=== PATIENT | female | born 1980 | race African-American/Black ===

== ENCOUNTER 2016-12-28 09:17 | Day surgery (SDC) | payer OTHER ==
[2016-12-28 09:42] LABS: BASOPHIL 0.7 % (0-2.0); EOSINOPHIL 1.9 % (0-4.5); MCH 24.8 pg (25.7-33.7); MCHC 31.3 g/dl (32.0-36.0); MEAN CELL VOLUME 79.3 fl (80-96); MEAN PLT VOLUME 9.3 fl (7.5-11.1); NEUTROPHILS 63.6 % (42.8-82.8); PLATELET COUNT 208 K/MM3 (134-434); RDW 17.8 % (11.6-15.6); WHITE BLOOD COUNT 7.7 K/mm3 (4.0-10.0)
[2016-12-28] MEDS ORDERED: diphenhydrAMINE HCL 25 MG CAPSULE (FP) PO ONE (10:00)
[2016-12-28] MEDS ORDERED: ACETAMINOPHEN 325 MG TABLET (FP) PO ONE (10:00)
[2016-12-28] MEDS ORDERED: SODIUM CHLORIDE 250 ML IV ONE (10:00)
[2016-12-28 10:11] LABS: ANION GAP 6 (8-16); CALCIUM 8.9 mg/dL (8.5-10.1); CO2 28 mmol/L (21-32); COCKROFT - GAULT 0; CREATININE 0.8 mg/dL (0.55-1.02); GLUCOSE,RANDOM 111 mg/dL (74-106)
[2016-12-28] MEDS ORDERED: ACETAMINOPHEN 325 MG TABLET (FP) ONE ×2 (10:11→10:13)
[2016-12-28 10:24] LABS: C-REACTIVE PROTEIN < 0.3 MG/DL (0.00-0.3)
[2016-12-28] MEDS ORDERED: SODIUM CHLORIDE IVPB ONE (10:30)
[2016-12-28] MEDS ORDERED: INFLIXIMAB IVPB ONE (10:30)
[2016-12-28 12:21] VITALS: PULSE 74
[2016-12-28 12:29] VITALS: TEMP 98.1
[2016-12-28 16:24] VITALS: BP 110/65
== END 2016-12-28 14:40 | disposition home or self-care (01) ==
LOC: JCHEMO 09:17
PROVIDERS: ATTEND Internal Medicine Gastroenterology
DX: K51.90 Ulcerative colitis, unspecified, without complications (principal)
CPT/HCPCS: 96413; 96415; J1745; 36415; 80048; 85025; 86140

== ENCOUNTER 2017-02-27 08:47 | Day surgery (SDC) | payer OTHER ==
[2017-02-27 09:10] LABS: BASOPHIL 1.1 % (0-2.0); EOSINOPHIL 2.9 % (0-4.5); MCH 25.3 pg (25.7-33.7); MCHC 31.8 g/dl (32.0-36.0); MEAN CELL VOLUME 79.6 fl (80-96); MEAN PLT VOLUME 9.2 fl (7.5-11.1); NEUTROPHILS 56.1 % (42.8-82.8); WHITE BLOOD COUNT 8.7 K/mm3 (4.0-10.0)
[2017-02-27 09:35] VITALS: BP 120/78; PULSE 76; TEMP 97.7
[2017-02-27] MEDS ORDERED: diphenhydrAMINE HCL 25 MG CAPSULE (FP) PO ONE ×2 (09:40→10:30)
[2017-02-27] MEDS ORDERED: ACETAMINOPHEN 500 MG TABLET (FP) ONE (09:41)
[2017-02-27 09:51] LABS: ANION GAP 10 (8-16); CALCIUM 8.7 mg/dL (8.5-10.1); CO2 20 mmol/L (21-32); CREATININE 0.7 mg/dL (0.55-1.02); GLUCOSE,RANDOM 78 mg/dL (74-106)
[2017-02-27] MEDS ORDERED: SODIUM CHLORIDE 250 ML IV ONE (10:00)
[2017-02-27] MEDS ORDERED: ACETAMINOPHEN 500 MG TABLET (FP) PO ONE (10:30)
[2017-02-27] MEDS ORDERED: SODIUM CHLORIDE IVPB ONE (10:45)
[2017-02-27] MEDS ORDERED: INFLIXIMAB IVPB ONE (10:45)
[2017-02-27 12:17] LABS: PLATELET COMMENT2 MOD LARGE PLTS; PLATELET ESTIMATE ADEQUATE (NORMAL)
[2017-02-27 16:37] LABS: PLATELET COUNT 231 K/MM3 (134-434)
== END 2017-02-27 10:15 | disposition home or self-care (01) ==
LOC: JCHEMO 08:47
PROVIDERS: ATTEND Internal Medicine Gastroenterology
PROC: 3E033GC Introduction of Other Therapeutic Substance into Peripheral Vein, Percutaneous Approach (ICD-10-PCS; principal; 2017-02-27)
DX: Z53.8 Procedure and treatment not carried out for other reasons (principal)
CPT/HCPCS: 36415; 80048; 85025; 86140

== ENCOUNTER 2017-03-08 08:16 | Day surgery (SDC) | payer OTHER ==
[2017-03-08 08:43] LABS: BASOPHIL 1.4 % (0-2.0); MCH 25.1 pg (25.7-33.7); MCHC 31.5 g/dl (32.0-36.0); MEAN CELL VOLUME 79.7 fl (80-96); NEUTROPHILS 58.1 % (42.8-82.8); PLATELET COUNT 194 K/MM3 (134-434); RDW 18.4 % (11.6-15.6); WHITE BLOOD COUNT 8.3 K/mm3 (4.0-10.0)
[2017-03-08] MEDS ORDERED: ACETAMINOPHEN 500 MG TABLET (FP) ONE (08:58)
[2017-03-08 09:13] LABS: ANION GAP 8 (8-16); C-REACTIVE PROTEIN < 0.3 MG/DL (0.00-0.3); CALCIUM 8.3 mg/dL (8.5-10.1); CO2 25 mmol/L (21-32); CREATININE 0.8 mg/dL (0.55-1.02); GLUCOSE,RANDOM 107 mg/dL (74-106)
[2017-03-08] MEDS ORDERED: SODIUM CHLORIDE 250 ML IV ONE (10:00)
[2017-03-08] MEDS ORDERED: SODIUM CHLORIDE IVPB ONE (10:30)
[2017-03-08] MEDS ORDERED: INFLIXIMAB IVPB ONE (10:30)
[2017-03-08 12:04] VITALS: TEMP 98.2
[2017-03-08 13:52] VITALS: BP 105/60; PULSE 82
== END 2017-03-08 13:05 | disposition home or self-care (01) ==
LOC: JCHEMO 08:16
PROVIDERS: ATTEND Internal Medicine Gastroenterology
DX: K51.90 Ulcerative colitis, unspecified, without complications (principal)
CPT/HCPCS: 36415; 80048; 85025; 86140; 96413; 96415; J1745

== ENCOUNTER 2017-05-17 08:42 | Day surgery (SDC) | payer OTHER ==
[2017-05-17 09:11] LABS: BASOPHIL 1.1 % (0-2.0); EOSINOPHIL 3.2 % (0-4.5); MCH 24.8 pg (25.7-33.7); MEAN PLT VOLUME 9.2 fl (7.5-11.1); NEUTROPHILS 65.1 % (42.8-82.8); PLATELET COUNT 240 K/MM3 (134-434); RDW 16.8 % (11.6-15.6); WHITE BLOOD COUNT 8.5 K/mm3 (4.0-10.0)
[2017-05-17] MEDS ORDERED: SODIUM CHLORIDE 250 ML IV ONE (09:15)
[2017-05-17] MEDS ORDERED: ACETAMINOPHEN 500 MG TABLET (FP) ONE (09:23)
[2017-05-17] MEDS ORDERED: ACETAMINOPHEN 500 MG TABLET (FP) PO ONE (09:30)
[2017-05-17 09:47] LABS: ANION GAP 11 (8-16); C-REACTIVE PROTEIN < 0.3 MG/DL (0.00-0.3); CALCIUM 9.1 mg/dL (8.5-10.1); CO2 24 mmol/L (21-32); CREATININE 0.9 mg/dL (0.55-1.02); GLUCOSE,RANDOM 90 mg/dL (74-106)
[2017-05-17] MEDS ORDERED: SODIUM CHLORIDE IVPB ONE (10:00)
[2017-05-17] MEDS ORDERED: INFLIXIMAB IVPB ONE (10:00)
[2017-05-17 11:27] VITALS: TEMP 98.8
[2017-05-17 12:40] VITALS: BP 108/60; PULSE 78
== END 2017-05-17 12:39 | disposition home or self-care (01) ==
LOC: JCHEMO 08:42
PROVIDERS: ATTEND Internal Medicine Gastroenterology
DX: K51.90 Ulcerative colitis, unspecified, without complications (principal)
CPT/HCPCS: 36415; 80048; 85025; 86140; 96413; 96415; J1745